=== PATIENT | male | born 1950 | race Caucasian/White ===

== ENCOUNTER 2022-05-06 09:14 | Inpatient (IN) | payer OTHER, MEDICAID ==
[~2022-05-06] VITALS: Ht 167.6 cm; Wt 73.9 kg
[2022-05-06] MEDS ORDERED: NACL 0.9% 1,000 ML IV ONE (09:30)
[2022-05-06 09:57] LABS: BASOPHILS # (AUTO) 0.1 K/uL (0.0-0.2); BASOPHILS % (AUTO) 0.8 % (0.0-2.0); EOSINOPHILS # (AUTO) 0.2 K/uL (0.0-0.4); EOSINOPHILS % (AUTO) 1.4 % (0.0-4.0); HEMATOCRIT 30.3 % (36-54); HEMOGLOBIN 9.8 g/dL (14.0-18.0); LYMPHOCYTES # (AUTO) 3.1 K/uL (1.0-5.5); LYMPHOCYTES % (AUTO) 25.8 % (20.5-51.5); MEAN CORPUSCULAR HEMOGLOBIN 26 pg (27-31); MEAN CORPUSCULAR HGB CONC 32 % (32-36); MEAN CORPUSCULAR VOLUME 81 fL (79.0-98.0); MONOCYTES # (AUTO) 0.9 K/uL (0.0-1.0); MONOCYTES % (AUTO) 7.2 % (1.7-9.3); NEUTROPHILS # (AUTO) 7.8 K/uL (1.8-7.7); NEUTROPHILS % (AUTO) 64.8 % (40.0-70.0); PLATELET COUNT (AUTO) 446 K/uL (130-430); RED BLOOD CELL COUNT(AUTO) 3.76 MIL/uL (4.2-6.2); RED CELL DISTRIBUTION WIDTH 16.4 % (9.0-15.0); WHITE BLOOD COUNT (AUTO) 12.1 K/uL (4.8-10.8)
[2022-05-06 10:01] LABS: ANION GAP 8 (5-15); CALCIUM 9.7 mg/dL (8.4-11.0); CHLORIDE 100 mmol/L (98-107); CREATININE 1.32 mg/dL (0.55-1.30); GLUCOSE 319 mg/dL (70-99); UREA NITROGEN, BLOOD 26 mg/dL (8-21)
[2022-05-06 10:06] LABS: ALANINE AMINOTRANSFERASE 19 U/L (12-78); ALBUMIN 3.3 g/dL (3.4-4.8); ASPARTATE AMINOTRANSFERASE 13 U/L (10-37); TOTAL BILIRUBIN 0.2 mg/dL (0.0-1.0)
[2022-05-06 10:57] LABS: BILIRUBIN,URINE NEGATIVE (NEGATIVE); GLUCOSE,URINE 2+ (NEGATIVE); KETONES,URINE NEGATIVE (NEGATIVE); LEUKOCYTE ESTERASE ,URINE 1+ (NEGATIVE); NITRITE, URINE NEGATIVE (NEGATIVE); PROTEIN URINE NEGATIVE (NEGATIVE); UROBILINOGEN,URINE 0.2 (0.2-1.0)
[2022-05-06 10:58] LABS: BLOOD, URINE TRACE (NEGATIVE); CLARITY/URINE SLIGHTLY HAZY (CLEAR); COLOR,URINE STRAW (YELLOW)
[2022-05-06 11:09] LABS: BACTERIA,URINE FEW /HPF (None Seen); RBC,URINE 0-3 /HPF (0-3)
[2022-05-06] MEDS ORDERED: HYDROcodone/ACETAMIN 5-325 MG TAB (NORCO/ VICODIN) PO PRN (17:30)
[2022-05-06] MEDS ORDERED: cefTRIAXone 1 GM IVPB PREMIX 50 ML IV SCH (17:30)
[2022-05-06] MEDS ORDERED: LORazepam 2 MG/ML VIAL IVP PRN (17:30)
[2022-05-06] MEDS ORDERED: ONDANSETRON HCL 4 MG/2 ML VIAL IVP PRN (17:30)
[2022-05-06] MEDS ORDERED: HYDROcodone/ACETAMIN 10-325 MG TAB PO PRN (17:30)
[2022-05-06] MEDS ORDERED: NALOXONE HCL 0.4 MG/ML AMP (NARCAN) IVP PRN ×2 (17:30)
[2022-05-06] MEDS ORDERED: ACETAMINOPHEN 325 MG TABLET PO PRN (17:30)
[2022-05-06 18:09] VITALS: BP_SYST 167
[2022-05-06] MEDS ORDERED: NEU300 PO (18:23)
[2022-05-06] MEDS ORDERED: METF-379 PO (18:23)
[2022-05-06] MEDS ORDERED: MELA5TAB21 PO (18:23)
[2022-05-06] MEDS ORDERED: NATE120T PO (18:23)
[2022-05-06] MEDS ORDERED: TAMS-11 PO (18:23)
[2022-05-06] MEDS ORDERED: INSU100V38 SQ (18:23)
[2022-05-06] MEDS ORDERED: ALLO100T PO (18:23)
[2022-05-06] MEDS ORDERED: SYN50 PO (18:23)
[2022-05-06] MEDS ORDERED: ERGO1250 PO (18:23)
[2022-05-06] MEDS ORDERED: AMIT10TA6 PO (18:23)
[2022-05-06] MEDS ORDERED: ACET-2634 PO ×2 (18:23)
[2022-05-06] MEDS ORDERED: SSNOVOLOG SUBCUT (18:23)
[2022-05-06] MEDS ORDERED: FINA5TAB3 PO (18:23)
[2022-05-06] MEDS ORDERED: LOSA25TA3 PO (18:23)
[2022-05-06 19:19] LABS: BILIRUBIN,URINE NEGATIVE (NEGATIVE); CLARITY/URINE CLEAR (CLEAR); COLOR,URINE YELLOW (YELLOW); GLUCOSE,URINE 1+ (NEGATIVE); KETONES,URINE NEGATIVE (NEGATIVE); NITRITE, URINE NEGATIVE (NEGATIVE); PROTEIN URINE NEGATIVE (NEGATIVE); UROBILINOGEN,URINE 0.2 (0.2-1.0)
[2022-05-06 19:30] LABS: BLOOD, URINE TRACE (NEGATIVE); LEUKOCYTE ESTERASE ,URINE NEGATIVE (NEGATIVE)
[2022-05-06 19:33] LABS: BACTERIA,URINE None Seen /HPF (None Seen); MUCUS,URINE None Seen /LPF (None Seen); RBC,URINE 0-3 /HPF (0-3); WBC,URINE NONE SEEN /HPF (0-3)
[2022-05-07] MEDS: D5/0.45 NS 1,000 ML IV SCH ×4 (03:30→21:01)
[2022-05-07 07:10] LABS: BASOPHILS # (AUTO) 0.1 K/uL (0.0-0.2); EOSINOPHILS # (AUTO) 0.2 K/uL (0.0-0.4); EOSINOPHILS % (AUTO) 1.5 % (0.0-4.0); HEMATOCRIT 30.5 % (36-54); LYMPHOCYTES # (AUTO) 2.9 K/uL (1.0-5.5); LYMPHOCYTES % (AUTO) 28.3 % (20.5-51.5); MEAN CORPUSCULAR HEMOGLOBIN 26 pg (27-31); MEAN CORPUSCULAR HGB CONC 33 % (32-36); MEAN CORPUSCULAR VOLUME 79 fL (79.0-98.0); MONOCYTES # (AUTO) 0.8 K/uL (0.0-1.0); MONOCYTES % (AUTO) 8.2 % (1.7-9.3); NEUTROPHILS # (AUTO) 6.2 K/uL (1.8-7.7); PLATELET COUNT (AUTO) 427 K/uL (130-430); RED BLOOD CELL COUNT(AUTO) 3.86 MIL/uL (4.2-6.2); RED CELL DISTRIBUTION WIDTH 16.4 % (9.0-15.0); WHITE BLOOD COUNT (AUTO) 10.2 K/uL (4.8-10.8)
[2022-05-07 07:23] LABS: ANION GAP 8 (5-15); CALCIUM 9.4 mg/dL (8.4-11.0); CHLORIDE 102 mmol/L (98-107); CREATININE 0.96 mg/dL (0.55-1.30); GLUCOSE 205 mg/dL (70-99); PHOSPHORUS 2.9 mg/dL (2.7-4.5); UREA NITROGEN, BLOOD 18 mg/dL (8-21)
[2022-05-07 07:52] VITALS: BP_SYST 169
[2022-05-07] MEDS: cefTRIAXone 1 GM IVPB PREMIX 50 ML IV SCH (09:20)
[2022-05-07] MEDS ORDERED: ACETAMINOPHEN 500 MG TABLET PO PRN (11:00)
[2022-05-07] MEDS ORDERED: INSULIN DEGLUDEC 30 UNIT SQ SCH (11:00)
[2022-05-07] MEDS ORDERED: ACETAMINOPHEN 325 MG TABLET PO PRN (11:15)
[2022-05-07] MEDS ORDERED: LOSARTAN POTASSIUM 25 MG TABLET PO ONE (11:30)
[2022-05-07] MEDS ORDERED: INSULIN GLARGINE 100 UNITS/ML, 10 ML VIAL SUBCUT ONE (11:30)
[2022-05-07] MEDS ORDERED: LEVOTHYROXINE SODIUM 0.05 MG TABLET PO ONE (11:30)
[2022-05-07] MEDS ORDERED: ALLOPURINOL 100 MG TABLET (ZYLOPRIM) PO ONE (11:30)
[2022-05-07] MEDS: INSULIN REGULAR, HUMAN 100 UNITS/ML, 3 ML VIAL (humuLIN R) SUBCUT PRN ×2 (12:05→17:02)
[2022-05-07] MEDS: NATEGLINIDE 120 MG TABLET PO SCH ×2 (12:18→17:07)
[2022-05-07] MEDS: GABAPENTIN 300 MG CAPSULE PO SCH ×2 (14:27→21:00)
[2022-05-07 16:00] VITALS: BP_SYST 154
[2022-05-07 20:10] VITALS: BP_SYST 150
[2022-05-07] MEDS: AMITRIPTYLINE HCL 10 MG TABLET (ELAVIL) PO SCH (20:59)
[2022-05-07] MEDS: TAMSULOSIN HCL 0.4 MG CAP PO SCH (21:00)
[2022-05-07] MEDS ORDERED: NON-FORMULARY MEDICATION (Melatonin 5 MG) PO SCH (21:00)
[2022-05-07] MEDS: MELATONIN 5 MG TABLET PO SCH (21:00)
[2022-05-07] MEDS: FINASTERIDE 5 MG TABLET (PROSCAR) PO SCH (21:01)
[2022-05-07] MEDS: metFORMIN HCL 500 MG TABLET PO SCH (21:05)
[2022-05-07 23:24] VITALS: BP_SYST 110
[2022-05-08] MEDS: LEVOTHYROXINE SODIUM 0.05 MG TABLET PO SCH (06:10)
[2022-05-08] MEDS: INSULIN REGULAR, HUMAN 100 UNITS/ML, 3 ML VIAL (humuLIN R) SUBCUT PRN ×4 (06:15→21:57)
[2022-05-08] MEDS: D5/0.45 NS 1,000 ML IV SCH ×2 (06:22→17:56)
[2022-05-08 06:51] LABS: BASOPHILS # (AUTO) 0.1 K/uL (0.0-0.2); BASOPHILS % (AUTO) 0.7 % (0.0-2.0); EOSINOPHILS # (AUTO) 0.2 K/uL (0.0-0.4); EOSINOPHILS % (AUTO) 2.1 % (0.0-4.0); HEMOGLOBIN 9.3 g/dL (14.0-18.0); LYMPHOCYTES # (AUTO) 3.2 K/uL (1.0-5.5); LYMPHOCYTES % (AUTO) 31.8 % (20.5-51.5); MEAN CORPUSCULAR HEMOGLOBIN 27 pg (27-31); MEAN CORPUSCULAR HGB CONC 33 % (32-36); MEAN CORPUSCULAR VOLUME 80 fL (79.0-98.0); MONOCYTES % (AUTO) 9.6 % (1.7-9.3); NEUTROPHILS # (AUTO) 5.7 K/uL (1.8-7.7); NEUTROPHILS % (AUTO) 55.8 % (40.0-70.0); PLATELET COUNT (AUTO) 368 K/uL (130-430); RED BLOOD CELL COUNT(AUTO) 3.49 MIL/uL (4.2-6.2); WHITE BLOOD COUNT (AUTO) 10.1 K/uL (4.8-10.8)
[2022-05-08 07:34] LABS: ANION GAP 8 (5-15); CALCIUM 8.9 mg/dL (8.4-11.0); CHLORIDE 102 mmol/L (98-107); CREATININE 1.15 mg/dL (0.55-1.30); GLUCOSE 180 mg/dL (70-99); UREA NITROGEN, BLOOD 17 mg/dL (8-21)
[2022-05-08 07:38] VITALS: BP_SYST 134
[2022-05-08] MEDS: GABAPENTIN 300 MG CAPSULE PO SCH ×3 (09:01→20:54)
[2022-05-08] MEDS: metFORMIN HCL 500 MG TABLET PO SCH ×2 (09:01→20:54)
[2022-05-08] MEDS: ALLOPURINOL 100 MG TABLET (ZYLOPRIM) PO SCH (09:01)
[2022-05-08] MEDS: LOSARTAN POTASSIUM 25 MG TABLET PO SCH (09:02)
[2022-05-08] MEDS: NATEGLINIDE 120 MG TABLET PO SCH ×3 (09:03→17:42)
[2022-05-08] MEDS: cefTRIAXone 1 GM IVPB PREMIX 50 ML IV SCH (09:04)
[2022-05-08] MEDS: INSULIN GLARGINE 100 UNITS/ML, 10 ML VIAL SUBCUT SCH (09:18)
[2022-05-08 12:00] VITALS: BP_SYST 128
[2022-05-08] MEDS ORDERED: MILK OF MAGNESIA 30 ML UDC PO PRN (16:00)
[2022-05-08 16:33] VITALS: BP_SYST 130
[2022-05-08 20:00] VITALS: BP_SYST 145
[2022-05-08] MEDS: TAMSULOSIN HCL 0.4 MG CAP PO SCH (20:54)
[2022-05-08] MEDS: AMITRIPTYLINE HCL 10 MG TABLET (ELAVIL) PO SCH (20:54)
[2022-05-08] MEDS: FINASTERIDE 5 MG TABLET (PROSCAR) PO SCH (20:55)
[2022-05-08] MEDS: MELATONIN 5 MG TABLET PO SCH (20:55)
[2022-05-09 00:20] VITALS: BP_SYST 138
[2022-05-09] MEDS: D5/0.45 NS 1,000 ML IV SCH ×2 (04:52→15:39)
[2022-05-09] MEDS: LEVOTHYROXINE SODIUM 0.05 MG TABLET PO SCH (06:11)
[2022-05-09] MEDS: INSULIN REGULAR, HUMAN 100 UNITS/ML, 3 ML VIAL (humuLIN R) SUBCUT PRN ×4 (06:18→22:19)
[2022-05-09 06:29] LABS: BASOPHILS % (AUTO) 0.3 % (0.0-2.0); EOSINOPHILS # (AUTO) 0.2 K/uL (0.0-0.4); EOSINOPHILS % (AUTO) 1.3 % (0.0-4.0); HEMATOCRIT 29.3 % (36-54); HEMOGLOBIN 9.6 g/dL (14.0-18.0); LYMPHOCYTES # (AUTO) 3.4 K/uL (1.0-5.5); LYMPHOCYTES % (AUTO) 24.2 % (20.5-51.5); MEAN CORPUSCULAR HEMOGLOBIN 26 pg (27-31); MEAN CORPUSCULAR HGB CONC 33 % (32-36); MEAN CORPUSCULAR VOLUME 80 fL (79.0-98.0); MONOCYTES # (AUTO) 1.1 K/uL (0.0-1.0); MONOCYTES % (AUTO) 7.6 % (1.7-9.3); NEUTROPHILS # (AUTO) 9.4 K/uL (1.8-7.7); NEUTROPHILS % (AUTO) 66.6 % (40.0-70.0); PLATELET COUNT (AUTO) 351 K/uL (130-430); RED BLOOD CELL COUNT(AUTO) 3.65 MIL/uL (4.2-6.2); RED CELL DISTRIBUTION WIDTH 16.1 % (9.0-15.0); WHITE BLOOD COUNT (AUTO) 14.1 K/uL (4.8-10.8)
[2022-05-09 06:59] LABS: ALANINE AMINOTRANSFERASE 17 U/L (12-78); ALBUMIN 2.7 g/dL (3.4-4.8); ANION GAP 7 (5-15); ASPARTATE AMINOTRANSFERASE 9 U/L (10-37); C-REACTIVE PROTEIN QUANT 0.4 mg/dL (0-0.5); CALCIUM 8.6 mg/dL (8.4-11.0); CHLORIDE 103 mmol/L (98-107); CREATININE 1.12 mg/dL (0.55-1.30); GLUCOSE 189 mg/dL (70-99); PHOSPHORUS 2.6 mg/dL (2.7-4.5); TOTAL BILIRUBIN 0.2 mg/dL (0.0-1.0); UREA NITROGEN, BLOOD 14 mg/dL (8-21)
[2022-05-09 07:48] VITALS: BP_SYST 158
[2022-05-09] MEDS: NATEGLINIDE 120 MG TABLET PO SCH ×3 (08:00→18:00)
[2022-05-09] MEDS: GABAPENTIN 300 MG CAPSULE PO SCH ×3 (09:31→22:13)
[2022-05-09] MEDS: LOSARTAN POTASSIUM 25 MG TABLET PO SCH (09:31)
[2022-05-09] MEDS: ALLOPURINOL 100 MG TABLET (ZYLOPRIM) PO SCH (09:31)
[2022-05-09] MEDS: metFORMIN HCL 500 MG TABLET PO SCH ×2 (09:31→22:13)
[2022-05-09] MEDS: INSULIN GLARGINE 100 UNITS/ML, 10 ML VIAL SUBCUT SCH (09:33)
[2022-05-09] MEDS: cefTRIAXone 1 GM IVPB PREMIX 50 ML IV SCH (09:34)
[2022-05-09 10:47] LABS: ERYTHROCYTE SEDIMENTATION RATE 59 MM/HR (0-15)
[2022-05-09 11:33] VITALS: BP_SYST 147
[2022-05-09] MEDS: NA PHOS 15 MM in NS 250 ML IV ONE ×2 (12:03→12:58)
[2022-05-09] MEDS: metroNIDAZOLE 250 mg/NS 50 ML IV SCH ×2 (13:10→22:30)
[2022-05-09 16:02] VITALS: BP_SYST 139
[2022-05-09 20:00] VITALS: BP_SYST 145
[2022-05-09] MEDS: MELATONIN 5 MG TABLET PO SCH (21:00)
[2022-05-09] MEDS: AMITRIPTYLINE HCL 10 MG TABLET (ELAVIL) PO SCH (22:13)
[2022-05-09] MEDS: TAMSULOSIN HCL 0.4 MG CAP PO SCH (22:13)
[2022-05-09] MEDS: FINASTERIDE 5 MG TABLET (PROSCAR) PO SCH (22:14)
[2022-05-10] VITALS: BP_SYST 156
[2022-05-10] MEDS: D5/0.45 NS 1,000 ML IV SCH ×2 (05:48→12:26)
[2022-05-10] MEDS: INSULIN REGULAR, HUMAN 100 UNITS/ML, 3 ML VIAL (humuLIN R) SUBCUT PRN ×2 (06:12→12:28)
[2022-05-10] MEDS: metroNIDAZOLE 250 mg/NS 50 ML IV SCH ×2 (06:15→14:50)
[2022-05-10] MEDS: LEVOTHYROXINE SODIUM 0.05 MG TABLET PO SCH (06:16)
[2022-05-10 07:09] LABS: BASOPHILS # (AUTO) 0.1 K/uL (0.0-0.2); BASOPHILS % (AUTO) 0.5 % (0.0-2.0); EOSINOPHILS # (AUTO) 0.3 K/uL (0.0-0.4); EOSINOPHILS % (AUTO) 2.5 % (0.0-4.0); HEMATOCRIT 27.7 % (36-54); HEMOGLOBIN 9.1 g/dL (14.0-18.0); LYMPHOCYTES # (AUTO) 3.1 K/uL (1.0-5.5); MEAN CORPUSCULAR HEMOGLOBIN 27 pg (27-31); MEAN CORPUSCULAR HGB CONC 33 % (32-36); MEAN CORPUSCULAR VOLUME 80 fL (79.0-98.0); MONOCYTES % (AUTO) 9.8 % (1.7-9.3); NEUTROPHILS % (AUTO) 57.2 % (40.0-70.0); PLATELET COUNT (AUTO) 284 K/uL (130-430); RED BLOOD CELL COUNT(AUTO) 3.44 MIL/uL (4.2-6.2); RED CELL DISTRIBUTION WIDTH 16.1 % (9.0-15.0); WHITE BLOOD COUNT (AUTO) 10.5 K/uL (4.8-10.8)
[2022-05-10 07:43] LABS: ANION GAP 7 (5-15); C-REACTIVE PROTEIN QUANT 1.9 mg/dL (0-0.5); CALCIUM 8.7 mg/dL (8.4-11.0); CHLORIDE 104 mmol/L (98-107); CREATININE 1.07 mg/dL (0.55-1.30); GLUCOSE 219 mg/dL (70-99); UREA NITROGEN, BLOOD 14 mg/dL (8-21)
[2022-05-10] MEDS: NATEGLINIDE 120 MG TABLET PO SCH ×3 (08:00→18:57)
[2022-05-10 08:58] VITALS: BP_SYST 142
[2022-05-10] MEDS: GABAPENTIN 300 MG CAPSULE PO SCH ×2 (09:19→14:50)
[2022-05-10] MEDS: ALLOPURINOL 100 MG TABLET (ZYLOPRIM) PO SCH (09:19)
[2022-05-10] MEDS: metFORMIN HCL 500 MG TABLET PO SCH (09:20)
[2022-05-10] MEDS: LOSARTAN POTASSIUM 25 MG TABLET PO SCH (09:20)
[2022-05-10] MEDS: cefTRIAXone 1 GM IVPB PREMIX 50 ML IV SCH (09:21)
[2022-05-10] MEDS: INSULIN GLARGINE 100 UNITS/ML, 10 ML VIAL SUBCUT SCH (09:50)
[2022-05-10 10:37] LABS: ERYTHROCYTE SEDIMENTATION RATE 56 MM/HR (0-15)
[2022-05-10] MEDS ORDERED: METR-343 PO (11:04)
[2022-05-10] MEDS ORDERED: ROCPM1 IV (11:04)
[2022-05-10 11:39] VITALS: BP_SYST 152
[2022-05-10 12:25] LABS: INR 1.1 (0.80-1.20)
[2022-05-10 18:41] VITALS: BP_SYST 147
[2022-05-10 21:54] VITALS: BP_SYST 148
[2022-05-11] MEDS ORDERED: LOSARTAN POTASSIUM 50 MG TABLET (COZAAR) PO SCH (09:00)
[2022-05-14] MEDS ORDERED: ERGOCALCIFEROL 8000 UNITS/ML ORAL SOLUTION, 60 ML BOTTLE PO SCH (09:00)
== END 2022-05-10 22:33 | disposition home health service (06) | DRG 871 ==
LOC: SED 09:14 → SMU 13:46
PROVIDERS: ADMIT Preventive Medicine Preventive Medicine/Occupational Environmental Medicine; ATTEND Preventive Medicine Preventive Medicine/Occupational Environmental Medicine
DX: A41.9 Sepsis, unspecified organism (principal); N17.0 Acute kidney failure with tubular necrosis; N39.0 Urinary tract infection, site not specified; I69.351 Hemiplegia and hemiparesis following cerebral infarction affecting right dominant side; E87.1 Hypo-osmolality and hyponatremia; E03.9 Hypothyroidism, unspecified; E11.40 Type 2 diabetes mellitus with diabetic neuropathy, unspecified; E88.09 Other disorders of plasma-protein metabolism, not elsewhere classified; E83.39 Other disorders of phosphorus metabolism; E11.65 Type 2 diabetes mellitus with hyperglycemia; N40.0 Benign prostatic hyperplasia without lower urinary tract symptoms; G47.00 Insomnia, unspecified; D75.839 Thrombocytosis, unspecified; D64.9 Anemia, unspecified; I12.9 Hypertensive chronic kidney disease with stage 1 through stage 4 chronic kidney disease, or unspecified chronic kidney disease; E11.22 Type 2 diabetes mellitus with diabetic chronic kidney disease; N18.9 Chronic kidney disease, unspecified; B96.1 Klebsiella pneumoniae [K. pneumoniae] as the cause of diseases classified elsewhere; B96.89 Other specified bacterial agents as the cause of diseases classified elsewhere; M10.9 Gout, unspecified; Z88.5 Allergy status to narcotic agent; Z85.118 Personal history of other malignant neoplasm of bronchus and lung; Z85.038 Personal history of other malignant neoplasm of large intestine; Z93.3 Colostomy status; Z90.49 Acquired absence of other specified parts of digestive tract
CPT/HCPCS: 36415; 70551; 71045; 76770; 80048; 80053; 81000; 82962; 83605; 83735; 83880; 84100; 84484; 85025; 85379; 85610-TC; 85651-TC; 85730-TC; 86140; 87040; 87086; 93005; 93306; 93880; 93970; 96360; 97112-GP; 97116-GP; 97530-GP; 99285; J0696; J1815; J3490; J7050